=== PATIENT | female | born 1970 | race African-American/Black ===

== ENCOUNTER → 2018-07-31 16:05 | Outpatient (CLI) | payer OTHER, SELFPAY ==
--- NOTE | 2018-07-31 16:11 | XR_ITS ---
XR chest 2V HISTORY: ITS.REASON: COUGH, FLU LIKE SYMPTOMS ORDERING PHYSICIAN: Kimber Matthew PATIENT AGE: 48 years COMPARISON: None FINDINGS: The cardiomediastinal silhouette and pulmonary vascularity are within normal limits. The lungs are clear without infiltrates, suspicious nodules, or pleural effusions. No acute bony abnormalities. IMPRESSION: Negative chest, no acute finding
== END ==
PROVIDERS: PCP Nurse Practitioner; Visit Provider Nurse Practitioner
DX: R68.89 Other general symptoms and signs (principal); R05 Cough
CPT/HCPCS: 71046

== ENCOUNTER 2020-01-18 08:03 | Emergency (ER) | payer SELFPAY ==
[2020-01-18 08:05] VITALS: BP 177/93; PULSE 71; RESP 19; TEMP 36.7; O2SAT 100; BMI 33.2
--- NOTE | 2020-01-18 08:15 | HMH.EDGENADL ---
ED Disposition Clinical Impression: DVT (deep venous thrombosis) Qualifiers: DVT location: lower extremity Affected thrombotic vein of extremity: tibial Chronicity: acute Laterality: right Qualified Code(s): I82.441 - Acute embolism and thrombosis of right tibial vein Disposition: Home, Self-Care Condition on Discharge: Good Additional Instructions: You were seen on an emergency basis. It is very important that you follow up with your primary care provider and/or specialist as we discussed within 2 days. All labs and imaging were obtained and interpreted here to rule out life threatening emergencies, but your final results should be reviewed by your primary doctor at your follow up appointment. Please return to the emergency department if any of your symptoms worsen, or if they do not improve as we discussed. Prescriptions: Apixaban [Eliquis 5mg Tablet] 5 mg PO BID #70 tab Prescription Printed Referrals: Damián Tolentino MD [Primary Care Provider] - - Critical Care Critical Care Time: No Attestation: On 01/18/20, the high probability of a clinically significant, sudden or life threatening deterioration of the following system(s) required my full and direct attention, intervention and personal management. The time I documented below is in addition to time spent performing reported procedures but includes the following listed in this critical care notation. Medical Decision Making - Kennedy Inquiry Pt receiving controlled substance: No ( ) Vital Signs: 01/18/20 08:05 Temperature 98.0 F Temperature Source Oral Pulse Rate [Left Radial] 71 Respiratory Rate 19 Blood Pressure [Right Arm] 177/93 H Blood Pressure Mean [Right Arm] 121 Blood Pressure Source [Right Arm] Automatic Cuff Blood Pressure Position [Right Arm] Sitting 02 Sat by Pulse Oximetry 100 Oxygen Delivery Method Room Air Orders (Tests/Meds): ED MEDICATIONS Discontinued Medications Generic Name Dose Route Start Last Admin Trade Name Freq PRN Reason Stop Dose Admin Hydrocodone Bitart/Acetaminophen 1 tab 01/18/20 08:22 01/18/20 08:24 [place] 5/325mg Tablet PO 01/18/20 08:23 1 tab ONCE ONE Administration ORDERS Category Date Time Status CA venous doppler LE RT Stat Y 01/18/20 08:21 Ordered Medical Decision Narrative: 49-year-old female presenting with traumatic right leg pain although clinically I had suspicion for DVT so she underwent ultrasound of the leg which demonstrated a tibial vein clot. I will start her on anticoagulation and have her follow-up with PCP. 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 She twisted and felt a pop in her right calf. She immediately sustained an antalgic gait. Weightbearing makes the pain worse. She has taken 800 mg of ibuprofen without relief. No other injury sustained. She did not fall. - Related Data Previous Rx's Medication Instructions Recorded Apixaban [Eliquis 5mg Tablet] 5 mg PO BID #70 tab 01/18/20 Allergies Allergy/AdvReac Type Severity Reaction Status Date / Time No Known Allergies Allergy Unknown Uncoded 05/01/17 15:21 [facility] History - Hepatitis A Screen Attestation statement:: This patient has been screened for Hepatitis A risk factors. I have reviewed the patient's past medical history: Yes ROS Obtained: Yes All systems reviewed & no additional complaints Physical Exam General: well developed, well hydrated, no acute distress Head: Normocephalic, atraumatic Heart: rate is normal, rhythm is normal. No murmurs appreciated Lungs: clear to auscultation bilaterally with normal effort and good air movement. Symmetrical chest rise Extremities: global full range of motion. a
--- NOTE | 2020-01-18 08:21 | CA_ITS ---
APPROVED REPORT Right Lower Extremity Venous Study for DVT. Solution Mixer: TARA Indications Lower Extremity Pain: Right Lower Extremity Edema: Right pain/swelling Vein Imaging CFV (R): compressive, spontaneous, phasic, augmentation SFJ (R): compressive, spontaneous, phasic, augmentation FEM (R): compressive, spontaneous, phasic, augmentation POP (R): compressive, spontaneous, phasic, augmentation DFV (R): compressive, spontaneous, phasic, augmentation PTV (R): Partially Compressible GSV (R): Compressible Peroneals (R):Not Visualized Findings Acute DVT is visualized in the posterior tibial vein of the right lower extremity. Reported to Rayray MCCORMACK Conclusion Acute DVT is visualized in the posterior tibial vein of the right lower extremity. Reported to Rayray MCCORMACK Electronically signed by : Hansel Glynn MD 01/20/2020 15:42:57
--- NOTE | 2020-01-18 08:25 | PC.NURSE ---
Registration is paging for on-call vascular at this time
--- NOTE | 2020-01-18 09:00 | PC.NURSE ---
Vascular states they will be her to do US in approx 2 hours.
--- NOTE | 2020-01-18 10:21 | PC.NURSE ---
pt taken upstairs for ultrasound for dvt
[2020-01-18 11:18] VITALS: BP 131/82; PULSE 87; RESP 16; TEMP 36.8; O2SAT 98
== END 2020-01-18 11:19 | disposition home or self-care (01) ==
PROVIDERS: Emergency Provider Physician Assistant; PCP Family Medicine
DX: I82.441 Acute embolism and thrombosis of right tibial vein (principal); Z79.01 Long term (current) use of anticoagulants
CPT/HCPCS: 93971; 99282

== ENCOUNTER 2021-01-30 01:48 | Emergency (ER) | payer SELFPAY ==
[2021-01-30 02:06] VITALS: BP 164/88; PULSE 83; RESP 18; TEMP 36.7; O2SAT 98; BMI 34.0
[2021-01-30 02:31] LABS: Basophils # 0.1 K/mm3 (0-0.2); Eosinophils # 0.1 K/mm3 (0.0-0.4)
[2021-01-30 02:35] LABS: Basophils % 1.2 % (0.1-2.0); Eosinophils % 1.6 % (0.1-12.0); Hematocrit 34.8 % (37.0-47.0); Hemoglobin 9.8 g/dL (12.2-16.2); Lymphocytes # 2.1 K/mm3 (0.7-4.5); Lymphocytes % 27.6 % (10-50); Mean Corpuscular HGB Conc 28.3 g/dL (31.8-35.4); Mean Corpuscular Volume 67.2 fl (81-99); Monocytes # 0.7 K/mm3 (0.1-1.0); Neutrophils # 4.6 K/mm3 (1.8-7.8); Neutrophils % 60.6 % (37.0-80.0); Platelet Count 461 K/mm3 (142-424); Red Blood Count 5.18 M/mm3 (4.20-5.40); White Blood Count 7.6 K/mm3 (4.8-10.8)
[2021-01-30 02:37] LABS: Lactic Acid 1.3 mmol/L (0.7-2.1)
[2021-01-30 02:38] LABS: Alanine Aminotransferase 16 U/L (12-78); Albumin Level 4.2 g/dl (3.5-5.0); Albumin/Globulin Ratio 1.1 (1.1-1.8); Alkaline Phosphatase 87 U/L (38-126); Anion Gap 11.1 mEq/L (5-15); Aspartate Amino Transferase 23 U/L (14-36); Bilirubin,Total 0.2 mg/dl (0.2-1.3); Blood Urea Nitrogen 15 mg/dl (7-17); Calcium 9.9 mg/dl (8.4-10.2); Carbon Dioxide 27 mmol/L (22.0-30.0); Chloride 106 mmol/L (98-107); Creatinine Clearance Estimated 142 mL/min (50-200); Estimated Glomerular Filt Rate 77 ml/min (>60); GFR (African American) 93 ML/MIN (>60); Globulin 3.8 g/dL (1.3-3.2); Glucose 109 mg/dl (74-100); Potassium 4.1 mmoL/L (3.5-5.1); Sodium 140 mmol/L (136-145)
--- NOTE | 2021-01-30 02:39 | HMH.EDNECK ---
ED Disposition Clinical Impression: Lymphadenopathy Disposition: Home, Self-Care Condition on Discharge: Good Instructions: DI for Lymphadenopathy Additional Instructions: use meds and see pcp for follow up Prescriptions: Minocycline HCl [Minocycline HCl 100mg Tab*] 100 mg PO BID #20 tab Prescription Printed Referrals: Damián Tolentino MD [Primary Care Provider] - - Critical Care Critical Care Time: No Attestation: On 01/30/21, the high probability of a clinically significant, sudden or life threatening deterioration of the following system(s) required my full and direct attention, intervention and personal management. The time I documented below is in addition to time spent performing reported procedures but includes the following listed in this critical care notation. Medical Decision Making - Medical Records Medical records reviewed: Yes: I reviewed the patient's medical records. - Kennedy Inquiry Pt receiving controlled substance: No Vital Signs: 01/30/21 02:06 Temperature 98.1 F Temperature Source Oral Pulse Rate [Left] 83 Respiratory Rate 18 Blood Pressure [Left Arm] 164/88 H Blood Pressure Mean [Left Arm] 113 Blood Pressure Source [Left Arm] Automatic Cuff 02 Sat by Pulse Oximetry 98 - Lab Data Lab results reviewed: Yes: I reviewed the patient's lab results. Lab Results 01/30/21 02:16: WBC 7.6, RBC 5.18, Hgb 9.8 L, Hct 34.8 L, MCV 67.2 L, MCH 19.0 L, MCHC 28.3 L, RDW 19.0 H, Plt Count 461 H, MPV 7.0 L, Neut % (Auto) 60.6, Lymph % (Auto) 27.6, [place] % (Auto) 9.0, Eos % (Auto) 1.6, Baso % (Auto) 1.2, Neut # (Auto) 4.6, Lymph # (Auto) 2.1, [place] # (Auto) 0.7, Eos # (Auto) 0.1, Baso # (Auto) 0.1, ESR 13 01/30/21 02:16: Sodium 140, Potassium 4.1, Chloride 106, Carbon Dioxide 27, Anion Gap 11.1, BUN 15, Creatinine 0.80, Estimated Creat Clear 142, Estimated GFR 77, Est GFR ( Amer) 93, Glucose 109 H, Calcium 9.9, Total Bilirubin 0.2, AST 23, ALT 16, Alkaline Phosphatase 87, C-Reactive Protein 5.7 H, Total Protein 8.0, Albumin 4.2, Globulin 3.8 H, Albumin/Globulin Ratio 1.1, Procalcitonin 0.039 01/30/21 02:16: Lactate 1.3 Result diagrams: 01/30/21 02:16 01/30/21 02:16 Orders (Tests/Meds): ED MEDICATIONS Discontinued Medications Generic Name Dose Route Start Last Admin Trade Name Katie PRN Reason Stop Dose Admin Iopamidol 75 ml 01/30/21 03:24 01/30/21 03:24 Iopamidol-370 (76%);100ml Bottle IV 01/30/21 03:25 75 ml ONCE ONE Administration Sodium Chloride 10 ml 01/30/21 03:24 01/30/21 03:24 Sodium Chloride 0.9% 10ml Syr (Rad Only) IV 01/30/21 03:25 10 ml ONCE ONE Administration ORDERS Category Date Time Status Blood Culture Stat Micro 01/30/21 02:16 Received - CT Data CT Scan: Other (neck) Time Received: 04:[address] Reviewed: Yes: I have viewed the radiologist's interpretation Preliminary Findings: Abnormal (nonspecific ) Medical Decision Narrative: prob lymph nodes and stable at this time Neck Pain/Injury HPI - General Chief Complaint: Neck Pain/Injury Stated Complaint: Knot on back of neck Time Seen by Provider: 01/30/21 02:20 Mode of Arrival: Ambulatory Source of Information: Patient, Medical Record Limitations: No Limitations Description of Symptoms (Recalled from ER Triage Doc. by RN): pt reports a knot in the back of her neck for a month with pain the past 2 days. pt reports the pain to be 8/10 stabbing pain. heat and lump felt on palpation left postior neck - History of Present Illness HPI Narrative: lt post neck swelling over the last few months worse now MD complaint: other (lt post neck swelling ) Onset (ago): week(s) Place: home Severity: moderate Quality: dull Associated symptoms: none Treatments prior to arrival: none - Related Data Previous Rx's Medication Instructions Recorded Minocycline HCl [Minocycline HCl 100 mg PO BID #20 tab 01/30/21 100mg Tab*] Allergies Allergy/AdvReac Type Severity Reactio
[2021-01-30 02:43] LABS: C-Reactive Protein 5.7 mg/L (0-4)
--- NOTE | 2021-01-30 02:44 | CT_ITS ---
PROCEDURE INFORMATION: Exam: CT Neck With Contrast Exam date and time: 01/30/2021 2:44 AM Age: 50 years old Clinical indication: Mass, lump, or swelling in neck; Patient HX: Swollen area a base of neck on patients left neck. Painful; Additional info: Possible abccess TECHNIQUE: Imaging protocol: Computed tomography images of the neck with contrast. Radiation optimization: All CT scans at this facility use at least one of these dose optimization techniques: automated exposure control; mA and/or kV adjustment per patient size (includes targeted exams where dose is matched to clinical indication); or iterative reconstruction. Contrast material: ISOVUE; Contrast volume: 75 ml; Contrast route: IV; COMPARISON: CR CS5 CERVICAL SPINE 4 OR 5 VIEWS 07/07/2014 11:24 AM FINDINGS: Nasopharynx: Unremarkable. Oropharynx: Unremarkable. No significant tonsillar enlargement. Hypopharynx: Unremarkable. Larynx: Unremarkable. Normal epiglottis. Retropharyngeal space: Unremarkable. Submandibular/Parotid glands: Normal. Glands are normal in size. Thyroid: Deep to the carotid sheath adjacent to the left thyroid lobe bed, which appears resected, is a group of shotty nodes measuring 1.5 x 1.3 x 2.3 cm. Lymph nodes: Unremarkable. No lymphadenopathy. Trachea: Visualized trachea is unremarkable. Lungs: Unremarkable as visualized. Bones/joints: Unremarkable. No acute fracture. Soft tissues: No organized fluid collections with rim enhancement appreciated. IMPRESSION: Shotty nodes adjacent to the left thyroid lobe bed, which appears resected without rim enhancing fluid collections.
[2021-01-30 02:57] LABS: Procalcitonin 0.039 ng/mL (0.0-2.0)
[2021-01-30 02:59] LABS: Erythrocyte Sedimentation Rate 13 mm/hr (0-20)
[2021-01-30 05:05] VITALS: BP 158/60; PULSE 81; RESP 14; TEMP 36.7; O2SAT 98
== END 2021-01-30 05:11 | disposition home or self-care (01) ==
PROVIDERS: Emergency Provider Emergency Medicine; PCP Family Medicine
DX: R59.1 Generalized enlarged lymph nodes (principal); M54.2 Cervicalgia; F17.210 Nicotine dependence, cigarettes, uncomplicated
CPT/HCPCS: 70491; 80053; 83605; 84145; 85025; 85651; 86140; 87040; 99283; Q9967

== ENCOUNTER 2022-02-04 08:55 | Emergency (ER) | payer SELFPAY ==
[2022-02-04 08:56] VITALS: BP 157/98; PULSE 94; RESP 16; TEMP 37.6; O2SAT 98; BMI 36.9
[2022-02-04 08:59] VITALS: BP 157/98; PULSE 90; RESP 16; O2SAT 100
--- NOTE | 2022-02-04 09:00 | ECG_ITS ---
APPROVED REPORT Exam: Resting ECG HR:96 bpm ECG Measurements Heart Rate 96 AXES DC 148 P 61 QRSd 81 QRS 30 QT 309 T 40 QTc 362 Conclusion SINUS RHYTHM NORMAL ECG UNCONFIRMED REPORT Electronically signed by : Damián Loving MD 02/09/2022 16:06:47
--- NOTE | 2022-02-04 09:02 | HMH.EDGENADL ---
Discharge Plan Disposition Patient Disposition: Home, Self-Care Condition: Good Chief Complaint: Chest Pain Referrals Follow up/Referrals: Doctor,Emergency, MD [[place] Provider] - See instructions (If worsening or development of new concerning symptoms) Clinical Impressions Clinical Impression: Chest pain Instructions Patient Instructions: DI for Atypical Chest Pain Discharge ED Provider: Gerald Madden General Adult HPI General Chief complaint: Chest Pain Stated complaint: chest pain Time Seen by Provider: 02/04/22 09:02 History of Present Illness HPI narrative: This is a 52-year-old female with past medical history of DVT and smoking, denies any prior history of hypertension, hyperlipidemia or diabetes. She presents with central chest pain described as sharp starting approximately 1.5 hours ago and constant since then. She has not taken anything for rate of the pain. Denies shortness of breath, does report some nausea, no vomiting or diaphoresis. Denies any known prior cardiac history although states she had seen a secretary office clerk once several years ago who had recommended a stress test which she has not yet had. Denies any prior heart catheterization. Pain started at rest, is nonexertional and nonradiating at this time. Related Data Allergies Allergy/AdvReac Type Severity Reaction Status Date / Time No Known Allergies Allergy Unknown Uncoded 05/01/17 15:21 [facility] Social History Smoking Status: Current every day smoker alcohol intake: never current occupational status: employed Travel in the last 8 weeks: None ROS Obtained: Yes Systems reviewed as appropriate & no additional complaints except as documented Constitutional Constitutional: Reports system reviewed and no additional complaints, except as documented Eyes Eyes: Reports system reviewed and no additional complaints, except as documented ENT Ears, Nose, Mouth, and Throat: Reports system reviewed and no additional complaints, except as documented Cardiovascular Cardiovascular: Reports as per HPI and Reports chest pain Respiratory Respiratory: Reports system reviewed and no additional complaints, except as documented Gastrointestinal Gastrointestingal: Reports system reviewed and no additional complaints, except as documented Genitourinary Female Genitourinary: Reports system reviewed and no additional complaints, except as documented Musculoskeletal Musculoskeletal: Reports system reviewed and no additional complaints, except as documented Integumentary/Breasts Skin/Breast: Reports system reviewed and no additional complaints, except as documented Neurologic Neurologic: Reports system reviewed and no additional complaints, except as documented Endocrine Endocrine: Reports system reviewed and no additional complaints, except as documented Hematologic/Lymphatic Henatologic/Lymphatic: Reports system reviewed and no additional complaints, except as documented Allergic/Immunologic Allergic/Immunologic: Reports system reviewed and no additional complaints, except as documented Physical Exam General General appearance: alert and in no apparent distress Head Head exam: atraumatic, normocephalic and normal inspection Eye Eye exam: Present normal appearance, PERRL and EOMI ENT ENT exam: Present normal exam, normal oropharynx, mucous membranes moist, TM's normal bilaterally and normal external ear exam Neck Neck exam: Present normal inspection, full ROM and trachea midline; Absent meningismus or lymphadenopathy Chest Chest inspection: Present normal inspection and symmetric chest wall rise; Absent tenderness Respiratory Respiratory exam: Present normal lung sounds bilaterally; Absent respiratory distress Cardiovascular Cardiovascular exam: Present regular rate and normal rhythm; Absent JVD Abdominal Exam Abdominal exam: Present soft and normal bowel sounds; Absent distention, tenderness or guarding
--- NOTE | 2022-02-04 09:04 | XR_ITS ---
PROCEDURE INFORMATION: Exam: XR Chest Exam date and time: 02/04/2022 9:24 AM Age: 52 years old Clinical indication: Angina pectoris; Patient HX: Chest pain, SOA; Additional info: Sob/cp TECHNIQUE: Imaging protocol: Radiologic exam of the chest. Views: 1 view. COMPARISON: CR CXR2V XR chest 2V 07/31/2018 4:14 PM FINDINGS: Lungs: No focal airspace disease. Pleural spaces: Unremarkable. No pleural effusion. No pneumothorax. Heart/Mediastinum: Cardiomediastinal silhouette is within normal limits. Bones/joints: Unremarkable. IMPRESSION: No acute cardiopulmonary abnormality.
[2022-02-04 09:38] LABS: Basophils # 0.2 K/mm3 (0-0.2); Eosinophils # 0.3 K/mm3 (0.0-0.4); Eosinophils % 1.8 % (0.1-12.0); Hematocrit 44.5 % (37.0-47.0); Hemoglobin 14.1 g/dL (12.2-16.2); Lymphocytes # 1.4 K/mm3 (0.7-4.5); Lymphocytes % 9.3 % (10-50); Mean Corpuscular HGB Conc 31.7 g/dL (31.8-35.4); Mean Corpuscular Hemoglobin 25.6 pg (27.0-31.2); Mean Platelet Volume 7.3 fl (7.4-10.4); Monocytes # 0.7 K/mm3 (0.1-1.0); Monocytes % 4.5 % (1.7-9.3); Neutrophils # 12.6 K/mm3 (1.8-7.8); Neutrophils % 83.4 % (37.0-80.0); Platelet Count 415 K/mm3 (142-424); Red Blood Count 5.49 M/mm3 (4.20-5.40); Red Cell Distribution Width 15.9 % (11.5-17.5); White Blood Count 15.1 K/mm3 (4.8-10.8)
[2022-02-04 09:44] LABS: Chloride 101 mmol/L (98-107); Sodium 139 mmol/L (136-145)
[2022-02-04 09:45] LABS: Potassium 4.5 mmoL/L (3.5-5.1)
--- NOTE | 2022-02-04 09:45 | PC.NURSE ---
pt's sister at bedside. pt and family updated on plan of care
[2022-02-04 09:47] LABS: Alanine Aminotransferase 28 U/L (12-78); Alkaline Phosphatase 131 U/L (38-126); Aspartate Amino Transferase 31 U/L (14-36); Bilirubin,Total 0.5 mg/dl (0.2-1.3); Blood Urea Nitrogen 11 mg/dl (7-17); Creatinine Clearance Estimated 134 mL/min (50-200); Estimated Glomerular Filt Rate 66 ml/min (>60); GFR (African American) 80 ML/MIN (>60)
[2022-02-04 09:48] LABS: Albumin Level 4.4 g/dl (3.5-5.0); Albumin/Globulin Ratio 1.1 (1.1-1.8); Anion Gap 13.5 mEq/L (5-15); Calcium 9.4 mg/dl (8.4-10.2); Carbon Dioxide 29 mmol/L (22.0-30.0); Glucose 106 mg/dl (74-100); Lipase 76 U/L (23-300); Total Protein,Serum 8.4 g/dl (6.3-8.2)
[2022-02-04 09:55] LABS: MANUAL DIFFERENTIAL MANUAL DIFFERENTIAL (MANUAL DIFF)
[2022-02-04 10:02] LABS: HCG Qualitative, Serum Negative (Negative)
[2022-02-04 10:03] VITALS: BP 155/89; PULSE 95; RESP 18; O2SAT 99
--- NOTE | 2022-02-04 10:03 | PC.NURSE ---
Readjusted BP cuff and cycled pressure
[2022-02-04 10:06] LABS: Troponin I < 0.01 ng/ml (0.00-0.034)
[2022-02-04 10:42] LABS: Lymphocytes % 21 % (10-50); Monocytes % 1 % (2-9); Neutrophils % 78 % (42-76); Platelet Estimate Normal; Total Cells Counted 100
[2022-02-04 10:44] LABS: RBC Morphology Normal
--- NOTE | 2022-02-04 10:48 | PC.NURSE ---
pt and sister updated on plan of care
[2022-02-04 10:49] LABS: Coronavirus 19, PCR Not Detected (NotDetected); Influenza A, PCR Not Detected (NotDetected); Influenza B, PCR Not Detected (NotDetected)
[2022-02-04 11:00] VITALS: BP 134/80; PULSE 98; RESP 16; O2SAT 98
--- NOTE | 2022-02-04 11:26 | PC.NURSE ---
pt sleeping arouses with verbal stimuli. when pt wakes up she is grimacing in pain. c/o headache
--- NOTE | 2022-02-04 12:21 | PC.NURSE ---
RN @ BS Drawing 2nd TROP
[2022-02-04 12:56] LABS: Troponin I < 0.01 ng/ml (0.00-0.034)
[2022-02-04 13:20] VITALS: BP 162/98; PULSE 88; RESP 16; TEMP 36.6; O2SAT 98
== END 2022-02-04 13:20 | disposition home or self-care (01) ==
PROVIDERS: Emergency Provider Emergency Medicine
DX: R07.89 Other chest pain (principal); I10 Essential (primary) hypertension; E78.5 Hyperlipidemia, unspecified; E11.9 Type 2 diabetes mellitus without complications; F17.200 Nicotine dependence, unspecified, uncomplicated; Z86.718 Personal history of other venous thrombosis and embolism
CPT/HCPCS: 71045; 80053; 83690; 84484; 84703; 85007; 85025; 93005; 96374; 96375; 99284; C9803; J2405; U0003; U0005

== ENCOUNTER 2022-11-27 15:20 | Emergency (ER) | payer SELFPAY ==
[2022-11-27 15:22] VITALS: BP 130/88; PULSE 95; RESP 17; TEMP 37.7; O2SAT 99; BMI 36.1
--- NOTE | 2022-11-27 15:37 | PC.NURSE ---
DR OSEGUERA AT BEDSIDE
[2022-11-27 15:50] VITALS: BP 137/91; PULSE 94; RESP 18; TEMP 37.2; O2SAT 100
--- NOTE | 2022-11-27 16:02 | HMH.EDGENADL ---
Discharge Plan Disposition Patient Disposition: Home, Self-Care Prescriptions Prescriptions: New doxycycline hyclate 100 mg capsule 100 mg PO BID 10 Days Qty: 20 0RF Referrals Follow up/Referrals: Provider,Referral, MD [Primary Care Provider] - See instructions Activity Restrictions/Add. Instructions Additional Instructions/Restrictions: Please take your antibiotics as indicated. Given the cost constraints that you have please tell your pharmacy to use the [employer] discount. You may download this gayle as well and it appears that it should be about $12 with a discount. You may also ask them to match [employer]'s morrell of $6. If you cannot get your prescription filled due to cost related issues please call us back we will work with psychologist social case management to make sure you get your antibiotic that you need. Please return with any worsening of her symptoms. Clinical Impressions Clinical Impression: Cellulitis of foot, Bug bite Instructions Patient Instructions: DI for Skin Abscess Discharge ED Provider: Mayi Martinez General Adult HPI General Chief complaint: Skin/Abscess/Foreign Body Stated complaint: 11/22 poss insect bite,RT back leg Time Seen by Provider: 11/27/22 15:32 Mode of Arrival: Ambulatory Source of Information: Patient Limitations: No Limitations Description of Symptoms (Recalled from ER Triage Doc. by RN): PT REPORTS POSSIBLE INSECT BITES TO BILATERAL FEET/ANKLES AND BACK OF LEGS. REPORTS ITCHING AND REDNESS AT SITES WELL PAIN. History of Present Illness HPI narrative: Patient is a 52-year-old female here with swelling redness and tenderness in the right lower extremity in her foot extending up the distal aspect of her lower leg. This began 5 days ago with an area of erythema and pruritus. She was outside playing with her granddaughter out in the grass and was unaware of a specific bug bite did not see a specific bug bite including no tick. Since that time she had some increasing pain and redness in the area. No fevers or chills however she has had some malaise. Mild headache as well. No other symptoms. Related Data Previous Rx's Medication Instructions Recorded doxycycline hyclate 100 mg capsule 100 mg PO BID 10 days #20 caps 11/27/22 Allergies Allergy/AdvReac Type Severity Reaction Status Date / Time morphine Allergy Verified 02/04/22 15:41 [facility] Disclaimer: The information contained in this section may have been updated after the patient was seen, as this information can be updated by other users. Social History Smoking Status: Current every day smoker alcohol intake: never current occupational status: employed Travel in the last 8 weeks: None ROS Obtained: Yes All systems reviewed & no additional complaints except as documented Physical Exam General General appearance: alert Respiratory Respiratory exam: Present normal lung sounds bilaterally; Absent respiratory distress Cardiovascular Cardiovascular exam: Present regular rate; Absent tachycardia Extremities Exam Extremities exam: Present other (Right lower extremity there is some erythema tenderness and swelling of the dorsal aspect of the foot extending around the posterior aspect of the ankle and up to the distal lower leg) Neurological Exam Neurological exam: Present alert and oriented X3 Medical Decision Making Kennedy Inquiry Pt receiving controlled substance: No Vital Signs: 11/27/22 15:22 11/27/22 15:50 Temperature 99.9 F H 98.9 F Temperature Source Oral Oral Pulse Rate 94 H Pulse Rate [Radial] 95 H Respiratory Rate 17 18 Blood Pressure 137/91 H Blood Pressure [Right Arm] 130/88 Blood Pressure Mean [Right Arm] 102 Blood Pressure Source Automatic Cuff Blood Pressure Source [Right Arm] Automatic Cuff Blood Pressure Position Sitting Blood Pressure Position [Right Arm] Sitting 02 Sat by Pulse Oximetry 99 Oxygen Deli
== END 2022-11-27 15:50 | disposition home or self-care (01) ==
PROVIDERS: Emergency Provider Student in an Organized Health Care Education/Training Program
DX: L03.115 Cellulitis of right lower limb (principal)
CPT/HCPCS: 99283